=== PATIENT | female | born 1945 | race Caucasian/White ===

== ENCOUNTER 2018-01-06 22:25 | Observation (INO) | payer MEDICARE ==
--- NOTE | 2018-01-06 22:52 | EDM.PDOC ---
ED HPI GENERAL MEDICAL PROBLEM - General Chief Complaint: General Stated Complaint: cold and clammy Time Seen by Provider: 01/06/18 22:37 Source of Information: Reports: Patient History Limitations: Reports: No Limitations - History of Present Illness INITIAL COMMENTS - FREE TEXT/NARRATIVE: This patient is a 77 year old female that presents to the ER. Patient is accompanied by family. She is here from [place] in [facility] for a wedding. Patient reports that about 1 hour ago she began to have generalized weakness, jittery, shaking, diaphoresis. She reports that this has been going on for 1 hour. Patient reports that she went to a wedding yesterday. She reports she has been constipated and had a BM yesterday. She reports also yesterday she nearly felt lightheaded and felt like she was going to pass out, but did not. The patient denies [place], dizziness, n, v, d, f, runny nose, congestion, drainage, cough, neck pain, neck stiffness, cp, soa, abd pain, urinary/bowel changes, rash. Patient reports she too BS at home and it was 112. Repeated here, 117. The patient is alert and oriented. She is conversing in full and complete sentences without difficulty. The patient was in a wheelchair, she was able to transfer to the stretcher without difficulty with minimal assistance. Onset: Today Onset Date: 01/06/18 Onset Time: 21:45 Duration: Hour(s): (1) Severity: Moderate Improves with: Reports: None Worsens with: Reports: None Associated Symptoms: Reports: Diaphoresis, Malaise, Weakness (generalized). Denies: Confusion, Chest Pain, Cough, cough w sputum, Fever/Chills, Headaches, Loss of Appetite, Nausea/Vomiting, Rash, Seizure, Shortness of Breath, Syncope - Related Data Allergies Allergy/AdvReac Type Severity Reaction Status Date / Time hydrocodone Allergy Nausea and Verified 01/06/18 22:27 Vomiting oxycodone Allergy Nausea and Verified 01/06/18 22:27 Vomiting Sulfa (Sulfonamide Allergy Cannot Verified 01/06/18 22:27 Antibiotics) Remember Home Meds: Home Meds Bethanechol [Urecholine] 25 mg PO BID 01/06/18 [History] Carisoprodol 350 mg PO BEDTIME PRN 01/06/18 [History] Cholecalciferol (Vitamin D3) [Vitamin D3] 2,000 unit PO DAILY 01/06/18 [History] Citalopram [Citalopram HBr] 20 mg PO DAILY 01/06/18 [History] Cyanocobalamin (Vitamin B-12) [Vitamin B-12] 1,000 mcg SQ Q7D 01/06/18 [History] Diclofenac Potassium [Zipsor] 50 mg PO TID PRN 01/06/18 [History] Docusate Sodium 100 mg PO DAILY PRN 01/06/18 [History] Famotidine 20 mg PO BID 01/06/18 [History] Iron,Carbonyl/Vit C/Vit B12/Fa [Iron 100 Plus Tablet] 1 tab PO DAILY 01/06/18 [ History] Levothyroxine [Synthroid] 50 mcg PO DAILY 01/06/18 [History] Temazepam [Restoril] 30 mg PO BEDTIME 01/06/18 [History] Vit C/E/Zn/Coppr/Lutein/Zeaxan [Preservision Areds 2 Softgel] 1 tab PO DAILY 05/14 [History] ED ROS GENERAL - Review of Systems Review Of Systems: See Below Constitutional: Reports: Malaise, Weakness (generalized), Diaphoresis HEENT: Reports: No Symptoms Respiratory: Reports: No Symptoms Cardiovascular: Reports: Lightheadedness Endocrine: Reports: No Symptoms GI/Abdominal: Reports: No Symptoms : Reports: No Symptoms Musculoskeletal: Reports: No Symptoms Skin: Reports: Diaphoresis Neurological: Reports: Tremors (jittery), Weakness (generalized). Denies: Confusion, Dizziness, Headache, Seizure, Syncope, Change in Speech Psychiatric: Reports: Anxiety Hematologic/Lymphatic: Reports: No Symptoms Immunologic: Reports: No Symptoms ED EXAM, GENERAL - Physical Exam Exam: See Below Exam Limited By: No Limitations General Appearance: Alert, WD/WN, No Apparent Distress, Anxious Eye Exam: Bilateral Eye: EOMI, Normal Inspection, PERRL Ears: Normal External Exam, Normal Canal, Hearing Grossly Normal, Normal TMs Ear Exam: Bilateral Ear: Auricle Normal, Canal Normal, TM normal Nose: Normal Inspection, Normal Mucosa, No Blood Throat/Mouth: Normal Inspection, Normal Lips, Normal Teeth, Normal Gums, Normal Oropharynx, Normal Voice, No Airway Compromise Head: Atraumatic, Normocephalic Neck: Normal Inspection, Supple, Non-Tender, Full Range of Motion Respiratory/Chest: No Respiratory Distress, Lungs Clear, Normal Breath Sounds, No Accessory Muscle Use Cardiovascular: Normal Peripheral Pulses, Regular Rate, Rhythm, No Edema, No Gallop, No JVD, No Murmur, No Rub Peripheral Pulses: 2+: Radial (L), Radial (R), Posterior Tibial (L), Posterior Tibial (R) GI/Abdominal: Normal Bowel Sounds, Soft, Non-Tender, No Organomegaly, No Distention, No Abnormal Bruit, No Mass, Pelvis Stable (Female) Exam: Deferred Rectal (Female) Exam: Deferred Back Exam: Normal Inspection, Full Range of Motion Extremities: Normal Inspection, Normal Range of Motion, Non-Tender, No Pedal Edema, Normal Capillary Refill Neurological: Alert, Oriented, CN II-XII Intact, Normal Cognition, Normal Gait, No Motor/Sensory Deficits, Other (jittery) Psychiatric: Anxious Skin Exam: Warm, Intact, Normal Color, No Rash, Diaphoretic Lymphatic: No Adenopathy EKG INTERPRETATION EKG Date: 01/06/18 Time: 22:59 Rhythm: NSR Rate (Beats/Min): 78 ST-T: Normal Comparison: NA - No Prior EKG Course - Vital Signs Last Recorded V/S: Last Vital Signs Temp 98.6 F 01/06/18 23:10 Pulse 87 01/06/18 22:28 Resp 20 01/06/18 22:28 BP 144/78 H 01/06/18 22:28 Pulse Ox 100 01/06/18 22:28 - Orders/Labs/Meds Orders: Active Orders 24 hr Category Date Time Status Cardiac Monitoring [RC] . DIRECTED Care 01/06/18 22:50 Active EKG Documentation Completion [RC] STAT Care 01/06/18 22:45 Active CULTURE BLOOD [BC] Stat Lab 01/06/18 23:00 Received CULTURE BLOOD [BC] Stat Lab 01/06/18 23:05 Received URINALYSIS W/MICROSCOPIC [UA W/MICROSCOPIC] [URIN] Stat Lab 01/06/18 22:46 Ordered Blood Culture x2 Reflex Set [OM.PC] Stat Oth 01/06/18 22:45 Ordered Labs: Laboratory Tests 01/06/18 01/06/18 01/06/18 Range/Units 22:44 22:46 23:05 WBC 7.4 (5.0-10.0) 10^3/uL RBC 3.99 L (4.00-5.50) 10^6/uL Hgb 12.7 (12.0-16.0) g/dL Hct 37.8 (37.0-47.0) % MCV 94.7 H (82.0-94.0) fL MCH 31.8 (27.0-32.0) pg MCHC 33.6 (33.0-38.0) g/dL RDW Coeff of [place] 12.0 (11.0-15.0) % Plt Count 244 (150-400) 10^3/uL Neut % (Auto) 44.5 (35-85) % Lymph % (Auto) 42.0 (10-55) % [place] % (Auto) 11.4 (0-16) % Eos % (Auto) 1.6 (0-5) % Baso % (Auto) 0.5 (0-3) % Neut # (Auto) 3.30 (1.80-7.00) 10^3/uL Lymph # (Auto) 3.12 (1.00-4.80) 10^3/uL [place] # (Auto) 0.85 H (0.00-0.80) 10^3/uL Eos # (Auto) 0.12 (0.00-0.45) 10^3/uL Baso # (Auto) 0.04 10^3/uL Sodium 144 (136-145) mEq/L Potassium 3.5 (3.5-5.0) mEq/L Chloride 106 (98-106) mEq/L Carbon Dioxide 28 (21-32) mmol/L BUN 17 (7-18) mg/dL Creatinine 1.5 H (0.6-1.0) mg/dL Est Cr Clr Drug Dosing 23.28 mL/min Estimated GFR (MDRD) 34 L (>=60) mL/min Glucose 94 (75-99) mg/dL Lactic Acid (0.4-2.0) mmol/L Calcium 9.2 (8.4-10.1) mg/dL Phosphorus 3.0 (2.5-4.9) mg/dL Magnesium 2.3 (1.8-2.4) mg/dL Total Bilirubin 0.4 (0.0-1.0) mg/dL AST 20 (15-37) U/L ALT 21 (12-78) U/L Alkaline Phosphatase 105 (46-116) U/L Lactate Dehydrogenase 176 (100-190) U/L Creatine Kinase 75 (21-215) U/L Troponin I < 0.017 (0.00-0.06) ng/mL Total Protein 7.4 (6.4-8.2) g/dL Albumin 4.2 (3.4-5.0) g/dL TSH, Ultra Sensitive 0.84 (0.36-5.60) uIU/mL Urine Color Yellow (YELLOW) Urine Appearance Clear (CLEAR) Urine pH 5.5 (4.5-8.0) Ur Specific [place] <= 1.005 (1.003-1.020) Urine Protein Negative (NEGATIVE) mg/dL Urine Glucose (UA) Negative (NEGATIVE) mg/dL Urine Ketones Negative (NEGATIVE) mg/dL Urine Occult Blood Negative (NEGATIVE) Urine Nitrite Negative (NEGATIVE) Urine Bilirubin Negative (NEGATIVE) Urine Urobilinogen 0.2 (0.2-1.0) EU/dL Ur Leukocyte Esterase Negative (NEGATIVE) Urine RBC Not seen (0-5) /HPF Urine WBC Not seen (0-5) /HPF Ur Squamous Epith Cells Occasional H (NOT SEEN) /HPF Urine Bacteria Occasional H (NOT SEEN) /HPF /05/14 Range/Units 23:05 WBC (5.0-10.0) 10^3/uL RBC (4.00-5.50) 10^6/uL Hgb (12.0-16.0) g/dL Hct (37.0-47.0) % MCV (82.0-94.0) fL MCH (27.0-32.0) pg MCHC (33.0-38.0) g/dL RDW Coeff of [place] (11.0-15.0) % Plt Count (150-400) 10^3/uL Neut % (Auto) (35-85) % Lymph % (Auto) (10-55) % [place] % (Auto) (0-16) % Eos % (Auto) (0-5) % Baso % (Auto) (0-3) % Neut # (Auto) (1.80-7.00) 10^3/uL Lymph # (Auto) (1.00-4.80) 10^3/uL [place] # (Auto) (0.00-0.80) 10^3/uL Eos # (Auto) (0.00-0.45) 10^3/uL Baso # (Auto) 10^3/uL Sodium (136-145) mEq/L Potassium (3.5-5.0) mEq/L Chloride (98-106) mEq/L Carbon Dioxide (21-32) mmol/L BUN (7-18) mg/dL Creatinine (0.6-1.0) mg/dL Est Cr Clr Drug Dosing mL/min Estimated GFR (MDRD) (>=60) mL/min Glucose (75-99) mg/dL Lactic Acid 0.8 (0.4-2.0) mmol/L Calcium (8.4-10.1) mg/dL Phosphorus (2.5-4.9) mg/dL Magnesium (1.8-2.4) mg/dL Total Bilirubin (0.0-1.0) mg/dL AST (15-37) U/L ALT (12-78) U/L Alkaline Phosphatase (46-116) U/L Lactate Dehydrogenase (100-190) U/L Creatine Kinase (21-215) U/L Troponin I (0.00-0.06) ng/mL Total Protein (6.4-8.2) g/dL Albumin (3.4-5.0) g/dL TSH, Ultra Sensitive (0.36-5.60) uIU/mL Urine Color (YELLOW) Urine Appearance (CLEAR) Urine pH (4.5-8.0) Ur Specific [place] (1.003-1.020) Urine Protein (NEGATIVE) mg/dL Urine Glucose (UA) (NEGATIVE) mg/dL Urine Ketones (NEGATIVE) mg/dL Urine Occult Blood (NEGATIVE) Urine Nitrite (NEGATIVE) Urine Bilirubin (NEGATIVE) Urine Urobilinogen (0.2-1.0) EU/dL Ur Leukocyte Esterase (NEGATIVE) Urine RBC (0-5) /HPF Urine WBC (0-5) /HPF Ur Squamous Epith Cells (NOT SEEN) /HPF Urine Bacteria (NOT SEEN) /HPF Meds: Medications Discontinued Medications Generic Name Dose Route Start Last Admin Trade Name Freq PRN Reason Stop Dose Admin Sodium Chloride 1,000 mls @ 1,000 mls/hr 01/06/18 23:54 01/07/18 00:09 Normal Saline IV 01/07/18 00:53 1,000 mls/hr .BOLUS ONE Administration - Re-Assessments/Exams Free Text/Narrative Re-Assessment/Exam: 01/07/18 01:02 This patient reports that she does feel some improved, but still feels clammy. Patient reports she has no pain. She reports just feels shaky and generally weak. Discuss with the patient and family her labs and findings. I will admit the patient for renal insufficiency. Departure - Departure Time of Disposition: 01:04 Disposition: Refer to Observation Condition: Fair Clinical Impression: Renal insufficiency, Generalized weakness, Jittery - Discharge Information *PRESCRIPTION DRUG MONITORING PROGRAM REVIEWED*: No *COPY OF PRESCRIPTION DRUG MONITORING REPORT IN PATIENT JAROD: No Forms: ED Department Discharge - My Orders Last 24 Hours: My Active Orders 01/06/18 22:45 EKG Documentation Completion [RC] STAT Blood Culture x2 Reflex Set [OM.PC] Stat 01/06/18 22:46 URINALYSIS W/MICROSCOPIC [UA W/MICROSCOPIC] [URIN] Stat 01/06/18 22:50 Cardiac Monitoring [RC] . DIRECTED 01/06/18 23:00 CULTURE BLOOD [BC] Stat 01/06/18 23:05 CULTURE BLOOD [BC] Stat - Assessment/Plan Last 24 Hours: My Active Orders 01/06/18 22:45 EKG Documentation Completion [RC] STAT Blood Culture x2 Reflex Set [OM.PC] Stat 01/06/18 22:46 URINALYSIS W/MICROSCOPIC [UA W/MICROSCOPIC] [URIN] Stat 01/06/18 22:50 Cardiac Monitoring [RC] . DIRECTED 01/06/18 23:00 CULTURE BLOOD [BC] Stat 01/06/18 23:05 CULTURE BLOOD [BC] Stat Plan: PLEASE SEE RN NOTE FOR PFSH. PLEASE USE ER H&P ADMIT H&P.
[2018-01-06 23:50] LABS: CHLORIDE,CL 106 mEq/L (98-106); SODIUM,NA 144 mEq/L (136-145)
[2018-01-06] MEDS ORDERED: Sodium Chloride 0.9% 1,000 ML IV ONE (23:54)
[2018-01-07] MEDS ORDERED: Ondansetron 4 MG/2 ML SDV IV PRN (03:11)
[2018-01-07] MEDS ORDERED: Morphine 2 MG/ML Syringe IVPUSH PRN (03:11)
[2018-01-07] MEDS ORDERED: Enoxaparin 30 MG/0.3 ML Syringe SUBCUT SCH (03:11)
[2018-01-07] MEDS ORDERED: Sodium Chloride 0.9% 1,000 ML IV SCH (03:11)
[2018-01-07] MEDS ORDERED: Acetaminophen/HYDROcodone 325-5 MG Tab PO PRN (03:11)
[2018-01-07] MEDS ORDERED: DICLOFENAC POTASSIUM 50 MG PO PRN (03:11)
[2018-01-07] MEDS ORDERED: Ibuprofen 200 MG Tab PO PRN (03:11)
[2018-01-07] MEDS ORDERED: Acetaminophen 325 MG Tab PO PRN (03:11)
[2018-01-07] MEDS ORDERED: CARISOPRODOL 350 MG PO PRN (03:29)
[2018-01-07] MEDS ORDERED: Sodium Chloride 0.9% 1,000 ML ONE (03:31)
[2018-01-07] MEDS ORDERED: **PTOM** Docusate Sodium 100 MG Cap PO PRN (03:32)
[2018-01-07] MEDS ORDERED: **PTOM** Levothyroxine 50 MCG Tab PO SCH (07:00)
[2018-01-07 07:31] LABS: CHLORIDE,CL 113 mEq/L (98-106); SODIUM,NA 146 mEq/L (136-145)
[2018-01-07] MEDS ORDERED: CITALOPRAM 10 MG PO SCH (08:00)
[2018-01-07] MEDS ORDERED: VIT B12 PO SCH (08:00)
[2018-01-07] MEDS ORDERED: Beta-Carotene (Vitamin A) w/Vitamin C & E plus Minerals Tab PO SCH (08:00)
[2018-01-07] MEDS ORDERED: **PTOM** Cholecalciferol (Vitamin D3) 1,000 Unit Tab PO SCH (08:00)
[2018-01-07] MEDS ORDERED: [UNRECOGNIZED DRUG - OTHER] PO SCH (08:00)
[2018-01-07] MEDS ORDERED: IRON CARBONYL PO SCH (08:00)
[2018-01-07] MEDS ORDERED: VIT C PO SCH (08:00)
[2018-01-07] MEDS ORDERED: CYANOCOBALAMIN 1000 MCG/ML SUBCUT SCH (09:00)
[2018-01-07] MEDS: BETHANECHOL 25 MG PO SCH ×2 (09:04→09:13)
--- NOTE | 2018-01-07 15:14 | PCM.DCSUM1 ---
Discharge Summary - Hospital Course Free Text/Narrative:: Alyssa is a 72 year female who presented to ER with complaints of generalized weakness, feeling jittery and sweating profusely. Here from [place] for a wedding. reports does not feel she had her usual oral liquid intake and may have been dehydrated. Patient reports that she had been constipated and had not had a BM for 4 days. Was lightheaded after straining to go but that had resolved with having a BM. She has been out in the heat but admits that she is used to a moist heat with where she lives. Had not been experiencing any nausea, vomiting, chest pain, shortness of breath. They did question if it was related to her blood sugar so did give her something to eat and checked her sugar which was 112. Exam negative on admission to ER. Labs relatively normal except her creatinine was up to 1.5. Other labs stable. Was admitted and started on IV fluids. Diagnosis: Stroke: No - Discharge Data Discharge Date: 01/07/18 Discharge Disposition: Home, Self-Care 01 Condition: Good - Patient Summary/Data Complications: none Hospital Course: Patient did have diaphoretic episodes x2 after admission. Now feeling better. Up ambulating in the halls and tolerating well. States feels a bit weaker than normal but steady. She denies any chest pain, shortness of breath, nausea or vomiting. Labs repeated this am are stable, creatinine down to 1.3. She did have episodes of bradycardia during the night but asymptomatic, sleeping. Patient does not have any experience with this in the past that she is aware of. Will have her follow up with her primary care provider for further work up if has any lightheadedness or ongoing symptoms. - Patient Instructions Diet: Usual Diet as Tolerated Activity: As Tolerated Other/Special Instructions: Notify primary provider of noted bradycardia (heart rate in the 40s while at rest/sleeping), especially if continue to have weakness or any near fainting. - Discharge Plan *PRESCRIPTION DRUG MONITORING PROGRAM REVIEWED*: No *COPY OF PRESCRIPTION DRUG MONITORING REPORT IN PATIENT JAROD: No Home Medications: Home Meds Bethanechol [Urecholine] 25 mg PO BID 01/06/18 [History] Carisoprodol 350 mg PO BEDTIME PRN 01/06/18 [History] Cholecalciferol (Vitamin D3) [Vitamin D3] 2,000 unit PO DAILY 01/06/18 [History] Citalopram [Citalopram HBr] 20 mg PO DAILY 01/06/18 [History] Cyanocobalamin (Vitamin B-12) [Vitamin B-12] 1,000 mcg SQ Q7D 01/06/18 [History] Diclofenac Potassium [Zipsor] 50 mg PO TID PRN 01/06/18 [History] Docusate Sodium 100 mg PO DAILY PRN 01/06/18 [History] Famotidine 20 mg PO BID 01/06/18 [History] Iron,Carbonyl/Vit C/Vit B12/Fa [Iron 100 Plus Tablet] 1 tab PO DAILY 01/06/18 [ History] Levothyroxine [Synthroid] 50 mcg PO DAILY 01/06/18 [History] Temazepam [Restoril] 30 mg PO BEDTIME 01/06/18 [History] Vit C/E/Zn/Coppr/Lutein/Zeaxan [Preservision Areds 2 Softgel] 1 tab PO DAILY 05/14 [History] Forms: ED Department Discharge Referrals: PCP,None [Primary Care Provider] - (follow up with Primary care provider next week once return home. ) - Discharge Summary/Plan Comment DC Time >30 min.: No Discharge Summary/Plan Comment: Discharge home Push fluids Follow up with her primary care provider for hospital discharge and discuss if any further work up needed for her bradycardia. - General Info Date of Service: 01/07/18 Admission Dx/Problem (Free Text: Weakness Functional Status: Reports: Pain Controlled, Tolerating Diet, Ambulating - Review of Systems General: Reports: Weakness, Fatigue. Denies: Fever HEENT: Reports: No Symptoms Pulmonary: Denies: Shortness of Breath, Cough Cardiovascular: Denies: Chest Pain, Edema, Lightheadedness Gastrointestinal: Denies: Abdominal Pain, Nausea, Vomiting Genitourinary: Reports: No Symptoms Musculoskeletal: Reports: No Symptoms Skin: Reports: No Symptoms Neurological: Reports: No Symptoms - Patient Data Vitals - Most Recent: Last Vital Signs Temp 96.1 F 01/07/18 07:47 Pulse 51 L 01/07/18 07:47 Resp 18 01/07/18 07:47 BP 124/68 01/07/18 07:47 Pulse Ox 99 01/07/18 07:47 Weight - Most Recent: 130 lb 12.8 oz Lab Results - Last 24 hrs: Laboratory Results - last 24 hr 01/06/18 01/06/18 01/06/18 Range/Units 22:44 22:46 23:05 WBC 7.4 (5.0-10.0) 10^3/uL RBC 3.99 L (4.00-5.50) 10^6/uL Hgb 12.7 (12.0-16.0) g/dL Hct 37.8 (37.0-47.0) % MCV 94.7 H (82.0-94.0) fL MCH 31.8 (27.0-32.0) pg MCHC 33.6 (33.0-38.0) g/dL RDW Coeff of [place] 12.0 (11.0-15.0) % Plt Count 244 (150-400) 10^3/uL Neut % (Auto) 44.5 (35-85) % Lymph % (Auto) 42.0 (10-55) % [place] % (Auto) 11.4 (0-16) % Eos % (Auto) 1.6 (0-5) % Baso % (Auto) 0.5 (0-3) % Neut # (Auto) 3.30 (1.80-7.00) 10^3/uL Lymph # (Auto) 3.12 (1.00-4.80) 10^3/uL [place] # (Auto) 0.85 H (0.00-0.80) 10^3/uL Eos # (Auto) 0.12 (0.00-0.45) 10^3/uL Baso # (Auto) 0.04 10^3/uL Sodium 144 (136-145) mEq/L Potassium 3.5 (3.5-5.0) mEq/L Chloride 106 (98-106) mEq/L Carbon Dioxide 28 (21-32) mmol/L BUN 17 (7-18) mg/dL Creatinine 1.5 H (0.6-1.0) mg/dL Est Cr Clr Drug Dosing 23.28 mL/min Estimated GFR (MDRD) 34 L (>=60) mL/min Glucose 94 (75-99) mg/dL Lactic Acid (0.4-2.0) mmol/L Calcium 9.2 (8.4-10.1) mg/dL Phosphorus 3.0 (2.5-4.9) mg/dL Magnesium 2.3 (1.8-2.4) mg/dL Total Bilirubin 0.4 (0.0-1.0) mg/dL AST 20 (15-37) U/L ALT 21 (12-78) U/L Alkaline Phosphatase 105 (46-116) U/L Lactate Dehydrogenase 176 (100-190) U/L Creatine Kinase 75 (21-215) U/L Troponin I < 0.017 (0.00-0.06) ng/mL Total Protein 7.4 (6.4-8.2) g/dL Albumin 4.2 (3.4-5.0) g/dL TSH, Ultra Sensitive 0.84 (0.36-5.60) uIU/mL Urine Color Yellow (YELLOW) Urine Appearance Clear (CLEAR) Urine pH 5.5 (4.5-8.0) Ur Specific [place] <= 1.005 (1.003-1.020) Urine Protein Negative (NEGATIVE) mg/dL Urine Glucose (UA) Negative (NEGATIVE) mg/dL Urine Ketones Negative (NEGATIVE) mg/dL Urine Occult Blood Negative (NEGATIVE) Urine Nitrite Negative (NEGATIVE) Urine Bilirubin Negative (NEGATIVE) Urine Urobilinogen 0.2 (0.2-1.0) EU/dL Ur Leukocyte Esterase Negative (NEGATIVE) Urine RBC Not seen (0-5) /HPF Urine WBC Not seen (0-5) /HPF Ur Squamous Epith Cells Occasional H (NOT SEEN) /HPF Urine Bacteria Occasional H (NOT SEEN) /HPF 01/06/18 01/07/18 01/07/18 Range/Units 23:05 02:00 07:10 WBC (5.0-10.0) 10^3/uL RBC (4.00-5.50) 10^6/uL Hgb (12.0-16.0) g/dL Hct (37.0-47.0) % MCV (82.0-94.0) fL MCH (27.0-32.0) pg MCHC (33.0-38.0) g/dL RDW Coeff of [place] (11.0-15.0) % Plt Count (150-400) 10^3/uL Neut % (Auto) (35-85) % Lymph % (Auto) (10-55) % [place] % (Auto) (0-16) % Eos % (Auto) (0-5) % Baso % (Auto) (0-3) % Neut # (Auto) (1.80-7.00) 10^3/uL Lymph # (Auto) (1.00-4.80) 10^3/uL [place] # (Auto) (0.00-0.80) 10^3/uL Eos # (Auto) (0.00-0.45) 10^3/uL Baso # (Auto) 10^3/uL Sodium 146 H (136-145) mEq/L Potassium 4.5 D (3.5-5.0) mEq/L Chloride 113 H (98-106) mEq/L Carbon Dioxide 28 (21-32) mmol/L BUN 15 (7-18) mg/dL Creatinine 1.3 H (0.6-1.0) mg/dL Est Cr Clr Drug Dosing 28.92 mL/min Estimated GFR (MDRD) 40 L (>=60) mL/min Glucose 88 (75-99) mg/dL Lactic Acid 0.8 (0.4-2.0) mmol/L Calcium 8.6 (8.4-10.1) mg/dL Phosphorus (2.5-4.9) mg/dL Magnesium (1.8-2.4) mg/dL Total Bilirubin (0.0-1.0) mg/dL AST (15-37) U/L ALT (12-78) U/L Alkaline Phosphatase (46-116) U/L Lactate Dehydrogenase (100-190) U/L Creatine Kinase (21-215) U/L Troponin I < 0.017 < 0.017 (0.00-0.06) ng/mL Total Protein (6.4-8.2) g/dL Albumin (3.4-5.0) g/dL TSH, Ultra Sensitive (0.36-5.60) uIU/mL Urine Color (YELLOW) Urine Appearance (CLEAR) Urine pH (4.5-8.0) Ur Specific [place] (1.003-1.020) Urine Protein (NEGATIVE) mg/dL Urine Glucose (UA) (NEGATIVE) mg/dL Urine Ketones (NEGATIVE) mg/dL Urine Occult Blood (NEGATIVE) Urine Nitrite (NEGATIVE) Urine Bilirubin (NEGATIVE) Urine Urobilinogen (0.2-1.0) EU/dL Ur Leukocyte Esterase (NEGATIVE) Urine RBC (0-5) /HPF Urine WBC (0-5) /HPF Ur Squamous Epith Cells (NOT SEEN) /HPF Urine Bacteria (NOT SEEN) /HPF 01/07/18 Range/Units 07:10 WBC 7.0 (5.0-10.0) 10^3/uL RBC 3.36 L (4.00-5.50) 10^6/uL Hgb 10.6 L (12.0-16.0) g/dL Hct 32.4 L (37.0-47.0) % MCV 96.4 H (82.0-94.0) fL MCH 31.5 (27.0-32.0) pg MCHC 32.7 L (33.0-38.0) g/dL RDW Coeff of [place] 11.9 (11.0-15.0) % Plt Count 183 (150-400) 10^3/uL Neut % (Auto) 50.0 (35-85) % Lymph % (Auto) 36.4 (10-55) % [place] % (Auto) 11.9 (0-16) % Eos % (Auto) 1.4 (0-5) % Baso % (Auto) 0.3 (0-3) % Neut # (Auto) 3.49 (1.80-7.00) 10^3/uL Lymph # (Auto) 2.54 (1.00-4.80) 10^3/uL [place] # (Auto) 0.83 H (0.00-0.80) 10^3/uL Eos # (Auto) 0.10 (0.00-0.45) 10^3/uL Baso # (Auto) 0.02 10^3/uL Sodium (136-145) mEq/L Potassium (3.5-5.0) mEq/L Chloride (98-106) mEq/L Carbon Dioxide (21-32) mmol/L BUN (7-18) mg/dL Creatinine (0.6-1.0) mg/dL Est Cr Clr Drug Dosing mL/min Estimated GFR (MDRD) (>=60) mL/min Glucose (75-99) mg/dL Lactic Acid (0.4-2.0) mmol/L Calcium (8.4-10.1) mg/dL Phosphorus (2.5-4.9) mg/dL Magnesium (1.8-2.4) mg/dL Total Bilirubin (0.0-1.0) mg/dL AST (15-37) U/L ALT (12-78) U/L Alkaline Phosphatase (46-116) U/L Lactate Dehydrogenase (100-190) U/L Creatine Kinase (21-215) U/L Troponin I (0.00-0.06) ng/mL Total Protein (6.4-8.2) g/dL Albumin (3.4-5.0) g/dL TSH, Ultra Sensitive (0.36-5.60) uIU/mL Urine Color (YELLOW) Urine Appearance (CLEAR) Urine pH (4.5-8.0) Ur Specific [place] (1.003-1.020) Urine Protein (NEGATIVE) mg/dL Urine Glucose (UA) (NEGATIVE) mg/dL Urine Ketones (NEGATIVE) mg/dL Urine Occult Blood (NEGATIVE) Urine Nitrite (NEGATIVE) Urine Bilirubin (NEGATIVE) Urine Urobilinogen (0.2-1.0) EU/dL Ur Leukocyte Esterase (NEGATIVE) Urine RBC (0-5) /HPF Urine WBC (0-5) /HPF Ur Squamous Epith Cells (NOT SEEN) /HPF Urine Bacteria (NOT SEEN) /HPF Med Orders - Current: Current Medications Discontinued Medications Acetaminophen (Tylenol) 650 mg PO Q4H PRN PRN Reason: Pain (Mild 1-3)/fever Hydrocodone Bitart/Acetaminophen ([place] 325-5 Mg) 1 tab PO Q4H PRN PRN Reason: Pain (moderate 4-6) Carisoprodol ([place]) 350 mg PO BEDTIME PRN PRN Reason: PAIN Cholecalciferol (Vitamin D3) 2,000 units PO DAILY [facility] Last Admin: 01/07/18 09:04 Dose: 2,000 units Citalopram Hydrobromide (Celexa) 20 mg PO DAILY [facility] Last Admin: 01/07/18 09:04 Dose: 20 mg Cyanocobalamin (Vitamin B12) 1,000 mcg SUBCUT Q7D [facility] Last Admin: 01/07/18 09:06 Dose: Not Given Cyanocobalamin (Vitamin B12) 1,000 mcg PO DAILY [facility] Last Admin: 01/07/18 09:03 Dose: 1,000 mcg Docusate Sodium (Colace) 100 mg PO DAILY PRN PRN Reason: Constipation Enoxaparin Sodium (Lovenox) 30 mg SUBCUT Q24H [facility] Last Admin: 01/07/18 03:44 Dose: 30 mg Famotidine (Pepcid) 20 mg PO BEDTIME [facility] Sodium Chloride (Normal Saline) 1,000 mls @ 1,000 mls/hr IV .BOLUS ONE Stop: 01/07/18 00:53 Last Admin: 01/07/18 00:09 Dose: 1,000 mls/hr Sodium Chloride (Normal Saline) 1,000 mls @ 125 mls/hr IV ASDIRECTED [facility] Last Admin: 01/07/18 03:45 Dose: 125 mls/hr Sodium Chloride (Normal Saline) Confirm Administered Dose 1,000 mls @ as directed .ROUTE .STK-MED ONE Stop: 01/07/18 03:32 Last Admin: 01/07/18 03:44 Dose: Not Given Ibuprofen (Motrin) 600 mg PO Q6H PRN PRN Reason: Pain (mild 1-3) Levothyroxine Sodium (Synthroid) 50 mcg PO ACBREAKFAST [facility] Last Admin: 01/07/18 09:02 Dose: 50 mcg Morphine Sulfate (Morphine) 2 mg IVPUSH Q2H PRN PRN Reason: Pain (severe 7-10) Multivitamins/Minerals (Prosight) 1 tab PO DAILY [facility] Last Admin: 01/07/18 09:06 Dose: Not Given Multivitamins/Minerals/Vitamin C (Tab-A-Mary) 1 tab PO DAILY [facility] Last Admin: 01/07/18 09:03 Dose: 1 tab Ptom Bethanechol ([Urecholine] 25 Mg) 25 mg PO BID [facility] Last Admin: 01/07/18 09:13 Dose: Not Given Ptom Diclofenac Potassium [Zipsor] 50 Mg 50 mg PO TID PRN PRN Reason: Pain Non-Formulary Medication (Iron,Carbonyl/Vit C/Vit B12/Fa [Iron 100 Plus Tablet] ) 1 tab PO DAILY [facility] Last Admin: 01/07/18 09:13 Dose: Not Given Ptom Iron 28 Mg (Tab) 1 each PO DAILY [facility] Last Admin: 01/07/18 09:05 Dose: 1 each Ondansetron HCl (Zofran) 4 mg IV Q6H PRN PRN Reason: Nausea/Vomiting Temazepam (Restoril) 30 mg PO BEDTIME [facility] - Exam General: Reports: Alert, Oriented HEENT: Reports: Mucous Membr. Moist/[place] Neck: Reports: Supple Lungs: Reports: Clear to Auscultation, Normal Respiratory Effort Cardiovascular: Reports: Regular Rate, Regular Rhythm GI/Abdominal Exam: Normal Bowel Sounds, Soft, Non-Tender Extremities: Normal Inspection, No Pedal Edema Skin: Reports: Warm, Dry Neurological: Reports: No New Focal Deficit
[2018-01-07] MEDS ORDERED: FAMOTIDINE 20 MG PO SCH (20:00)
[2018-01-07] MEDS ORDERED: TEMAZEPAM 15 MG PO SCH (20:00)
[2018-01-08] MEDS ORDERED: IRON 28 MG PO SCH (08:00)
[2018-01-08] MEDS ORDERED: CYANOCOBALAMIN 1000 MCG PO SCH (08:00)
[2018-01-08] MEDS ORDERED: MULTIVITAMIN PO SCH (08:00)
== END 2018-01-07 12:45 | disposition home or self-care (01) ==
LOC: CC.ED 22:25 → CC.MS 01-07 01:35 → CC.ED 01-07 01:35
PROVIDERS: ADMIT Nurse Practitioner; ATTEND Family Medicine
DX: R53.1 Weakness (principal); R00.1 Bradycardia, unspecified; R61 Generalized hyperhidrosis; Z88.5 Allergy status to narcotic agent; Z88.2 Allergy status to sulfonamides
CPT/HCPCS: 36415; 80048; 80053; 81001; 82550; 83605; 83615; 83735; 84100; 84443; 84484; 85025; 87040; 93005; 96360; 96372; 99285; A9270-GY; G0378; J1650; J7030